=== PATIENT | female | born 1965 | race Caucasian/White ===

== ENCOUNTER 2016-11-28 17:28 | Emergency (ER) | payer OTHER ==
[~2016-11-28] VITALS: Wt 65.9 kg
[~2016-11-28 17:28] MED LIST: DOCU-144 PO; HYDR-3720 PO; HYDR-762 PO; SERT-165 PO
[2016-11-28] MEDS ORDERED: FLUORESCEIN STRIP RIGHT EYE ONE (18:30)
[2016-11-28] MEDS ORDERED: TETRACAINE 0.5% 15 ML OPH RIGHT EYE ONE (18:30)
[2016-11-28] MEDS ORDERED: OFLO5DRO3 OP (18:54)
[2016-11-28] MEDS ORDERED: ACET1TAB40 PO (18:54)
--- NOTE | 2016-11-28 18:58 | ERD ---
ER Documentation Chief Complaint Date/Time DATE: 11/28/16 TIME: 18:56 Chief Complaint r. eye watery, scratchy, sensative to light HPI This 51-year-old female complains of right eye pain after waking in the middle of night and having slow onset of pain. She denies any history of trauma. She has photophobia with but no visual changes or visual field deficit. She has a slight amount of discharge. She denies contact lens use. ROS All systems reviewed and are negative except as per history of present illness. Medications Home Meds Active Scripts Acetaminophen with Codeine (Acetaminophen-Cod #3 Tablet) 1 Each Tablet, 1 TAB PO Q6H Y for PAIN, #12 TAB Prov:JESSE LINDSAY MD 11/28/16 Ofloxacin (Ofloxacin) 5 Ml Drops, 5 ML OP QID for 7 Days, BOTTLE Prov:JESSE LINDSAY MD 11/28/16 Hydrocodone Bit-Acetaminophen* ([place]*) 7.5-325 Tablet, 1 TAB PO Q4H Y for PAIN , #20 TAB Prov:KANDI HAWLEY DO 06/02/16 Docusate Sodium* (Colace*) 100 Mg Capsule, 100 MG PO TID, #30 CAP Prov:ERIC ABRAMS 01/22/16 Hydrocodone Bit-Acetaminophen* ([place]*) 10-325 Mg Tablet, 1 TAB PO Q6 Y for PAIN , #20 TAB Prov:ERIC ABRAMS 01/22/16 Reported Medications Sertraline Hcl* (Sertraline Hcl*) 100 Mg Tablet, 100 MG PO QHS 01/22/16 Allergies Allergies: Coded Allergies: Penicillins (Verified Allergy, Mild, RASH, 04/09/14) PMhx/Soc History of Surgery: No Anesthesia Reaction: No Hx Neurological Disorder: No Hx Respiratory Disorders: No Hx Cardiac Disorders: No Hx Psychiatric Problems: No Hx Miscellaneous Medical Probl: No Hx Alcohol Use: No Hx Substance Use: No Hx Tobacco Use: No Physical Exam Vitals Vital Signs Date Time Temp Pulse Resp B/P Pulse Ox O2 Delivery O2 Flow Rate FiO2 11/28/16 17:50 97.6 85 20 126/72 96 Physical Exam Const: [] Alert, [id number]. Head: Atraumatic Eyes: Normal Conjunctiva. There is what appears to be a small corneal abrasion at 2:00 on the right cornea. There is negative SieDel sign eyes are PERRLA and extraocular movements intact. Visual acuity is 20/50 in the affected eye and 20/30 in the unaffected eye. There is no proptosis. ENT: Normal External Ears, Nose and Mouth. Neck: Full range of motion..~ No meningismus. Resp: Clear to auscultation bilaterally Cardio: Regular rate and rhythm, no murmurs Abd: Soft, non tender, non distended. Normal bowel sounds Skin: No petechiae or rashes Back: No midline or flank tenderness Ext: No cyanosis, or edema Neur: Awake and alert Psych: Normal Mood and Affect Results 24 hrs Current Medications Medications (Trade) Dose Ordered Sig/Elia Route PRN Reason Start Time Stop Time Status Last Admin Dose Admin Tetracaine HCl (Tetracaine 0.5% Oph) 1 drop ONCE ONCE RIGHT EYE 11/28/16 18:30 11/28/16 18:31 DC Fluorescein Sodium (Abjzb-Y-Ibshb) 1 strip ONCE ONCE RIGHT EYE 11/28/16 18:30 11/28/16 18:31 DC Procedures/MDM This patient has signs of appears to be a corneal abrasion on the right eye without evidence of threats to vision, visual field deficits, signs of globe rupture, orbital cellulitis, optic neuritis, retinal artery ischemia. She will be discharged home with a prescription of Ciloxan ophthalmic solution, Tylenol 3 and referral to ophthalmology for further evaluation this week. She should otherwise return to the ER for new or worsening symptoms or Departure Diagnosis: Primary Impression: Eye pain Laterality: right Qualified Code: H57.11 - Eye pain, right Condition: Stable Patient Instructions: Corneal Abrasion Referrals: [facility] Hours: Mon - Fri 9:00 AM - 5:00 PM Additional Instructions: Va al cifuentes doctor/ specialista para mas evaluacon en el proximo semana. posiblemente necesita autorizado de cifuentes doctor primario para specialista. Regresa para fiebre, o mas o nueva simptomas. JESSE LINDSAY MD Nov 28, 2016 18:58
== END 2016-11-28 19:02 | disposition home or self-care (01) ==
LOC: FTE 17:28
DX: H57.11 Ocular pain, right eye (principal)
CPT/HCPCS: Z7502; Z7610; 99284

== ENCOUNTER 2018-03-10 18:54 | Emergency (ER) | END 2018-03-10 21:30 | disposition home or self-care (01) ==

== ENCOUNTER 2018-09-28 17:03 | Emergency (ER) | END 2018-09-28 19:35 | disposition home or self-care (01) ==

== ENCOUNTER 2018-12-12 13:04 | Emergency (ER) | payer BC ==
[~2018-12-12] VITALS: Ht 162.6 cm; Wt 74.8 kg
[~2018-12-12 13:04] MED LIST changes: +ACET1TAB40 PO; +CEPH-443 PO; +NITR-58 PO; +OFLO5DRO3 OP; +PHEN-538 PO
[2018-12-12 13:10] VITALS: BP 125/81; PULSE 88; RESP 18; Ht 162.6 cm; Wt 74.8 kg
[2018-12-12] MEDS ORDERED: TRIA60LO10 TOP (16:14)
[2018-12-12] MEDS ORDERED: MUPI15CR9 TOP (16:14)
--- NOTE | 2018-12-12 21:55 | ERD ---
ER Documentation Chief Complaint Chief Complaint cold sores after fever HPI 53-year-old female presents for rash over her mouth times 4 days. She also has associated cough and runny nose and subjective fever. Her symptoms have been improving however the rash has been ongoing. No treatment tried at home. She denies chest pain or shortness of breath. Denies abdominal pain, nausea, vomiting. ROS All systems reviewed and are negative except as per history of present illness. Medications Home Meds Active Scripts Acetaminophen* (Tylenol*) 325 Mg Tablet, 2 TAB PO Q8 PRN for PAIN AND OR ELEVATED TEMP, #20 TAB Prov:DOMINIQUE VALENZUELA MD 12/21/18 Ranitidine Hcl* (Zantac*) 150 Mg Tablet, 150 MG PO BID PRN for EPIGASTRIC PAIN, #10 TAB Prov:DOMINIQUE VALENZUELA MD 12/21/18 Azithromycin* (Zithromax*) 250 Mg Tablet, 250 MG PO .ZPACK DIRECTED, #6 TAB TAKE 500 MG (2 TABS) THE FIRST DAY THEN 250 MG (1 TAB) DAYS 2-5 Prov:DOMINIQUE VALENZUELA MD 12/21/18 Mupirocin Calcium* (Mupirocin*) 2% - 15 Gram Cream..g., 1 APPLIC TOP BID for rash for 7 Days, #1 TUB Prov:KATHLEEN MCCABE DO 12/12/18 Triamcinolone Acetonide (Triamcinolone Acetonide) 0.025% - 60 Ml Lotion, 1 APPLIC TOP BID PRN for rash for 7 Days, #1 BOTTLE Prov:KATHLEEN MCCABE DO 12/12/18 Nitrofurantoin Monohyd Macrocr* (Macrobid*) 100 Mg Capsr, 100 MG PO BID for 7 Days, CAP Prov:GORDON YOUNG PA-C 09/28/18 Phenazopyridine Hcl* (Pyridium*) 200 Mg Tab, 200 MG PO TID PRN for URINARY PAIN, #6 TAB Prov:ELIS,KEISHA 03/10/18 Cephalexin* (Keflex*) 500 Mg Capsule, 500 MG PO TID for 7 Days, CAP Prov:ELIS,KEISHA 03/10/18 Acetaminophen with Codeine (Acetaminophen-Cod #3 Tablet) 1 Each Tablet, 1 TAB PO Q6H PRN for PAIN, #12 TAB Prov:JESSE LINDSAY MD 11/28/16 Ofloxacin (Ofloxacin) 5 Ml Drops, 5 ML OP QID for 7 Days, BOTTLE Prov:JESSE LINDSAY MD 11/28/16 Hydrocodone Bit-Acetaminophen* ([place]*) 7.5-325 Tablet, 1 TAB PO Q4H PRN for PAIN, #20 TAB Prov:KANDI HAWLEY DO 06/02/16 Docusate Sodium* (Colace*) 100 Mg Capsule, 100 MG PO TID, #30 CAP Prov:ERIC ABRAMS MD 01/22/16 Hydrocodone Bit-Acetaminophen* ([place]*) 10-325 Mg Tablet, 1 TAB PO Q6 PRN for PAIN, #20 TAB Prov:ERIC ABRAMS MD 01/22/16 Reported Medications Sertraline Hcl* (Sertraline Hcl*) 100 Mg Tablet, 100 MG PO QHS 01/22/16 Allergies Allergies: Coded Allergies: Penicillins (Verified Allergy, Mild, RASH, 04/09/14) PMhx/Soc Medical and Surgical Hx: pt denies Medical Hx, pt denies Surgical Hx History of Surgery: No Anesthesia Reaction: No Hx Neurological Disorder: No Hx Respiratory Disorders: No Hx Cardiac Disorders: No Hx Psychiatric Problems: No Hx Miscellaneous Medical Probl: No Hx Alcohol Use: No Hx Substance Use: No Hx Tobacco Use: No Smoking Status: Never smoker Physical Exam Vitals Vital Signs Date Temp Pulse Resp B/P (MAP) Pulse Ox O2 O2 Flow FiO2 Time Delivery Rate 12/12/18 98.2 88 18 125/81 99 13:10 (96) Physical Exam Const: No acute distress Head: Atraumatic Eyes: Normal Conjunctiva ENT: Normal External Ears, Nose, rash noted over the es border of the upper lip, crusted over Neck: Full range of motion. No meningismus. Resp: Clear to auscultation bilaterally Cardio: Regular rate and rhythm, no murmurs Abd: Soft, non tender, non distended. Normal bowel sounds Skin: No petechiae Back: No midline or flank tenderness Ext: No cyanosis, or edema Neur: Awake and alert Psych: Normal Mood and Affect Procedures/MDM Medical Decision Making: Differential diagnosis includes but not limited to chelitis, contact dermatitis, cellulitis. Patient appeared well on physical exam. Examination of the rash consistent with a chelitis. Patient given prescription for supportive creams. Patient advised to follow up with PCP in 1-2 days. Patient advised to return to ED for new or worsening symptoms. Patient stable on discharge from the ED. Disclaimer: Inadvertent spelling and grammatical errors are likely due to EHR/ dictation software use and do not reflect on the overall quality of patient care. Also, please note that the electronic time recorded on this note does not necessarily reflect the actual time of the patient encounter. Departure Diagnosis: Primary Impression: Cheilitis Condition: Fair Patient Instructions: Self-Care for Skin Rashes Referrals: [facility] YOU HAVE RECEIVED A MEDICAL SCREENING EXAM AND THE RESULTS INDICATE THAT YOU DO NOT HAVE A CONDITION THAT REQUIRES URGENT TREATMENT IN THE EMERGENCY DEPARTMENT. FURTHER EVALUATION AND TREATMENT OF YOUR CONDITION CAN WAIT UNTIL YOU ARE SEEN IN YOUR DOCTORS OFFICE WITHIN THE NEXT 1-2 DAYS. IT IS YOUR RESPONSIBILITY TO MAKE AN APPOINTMENT FOR FOLOW-UP CARE. IF YOU HAVE A PRIMARY DOCTOR --you should call your primary doctor and schedule an appointment IF YOU DO NOT HAVE A PRIMARY DOCTOR YOU CAN CALL OUR PHYSICIAN REFERRAL HOTLINE AT IF YOU CAN NOT AFFORD TO SEE A PHYSICIAN YOU CAN CHOSE FROM THE FOLLOWING [facility] [address] [facility] [address] [facility] [facility] [address] [facility] [address] [facility]. [facility] [address] [facility]. [facility]. [address] Additional Instructions: Llame al doctor MAANA y emil price CRISTINA PARA DENTRO DE 1-2 ROGERS.Dgale a la secretaria que nosotros le instruimos hacer esta cristina.Avise o llame si cifuentes condicin se empeora antes de la cristina. Regresa aqui si peor o no mejor. KATHLEEN MCCABE DO Dec 12, 2018 21:55
[2018-12-21] MEDS ORDERED: RANI150T35 PO (18:05)
[2018-12-21] MEDS ORDERED: AZIT250T PO (18:05)
[2018-12-21] MEDS ORDERED: ACET325T33 PO (18:05)
== END 2018-12-12 16:27 | disposition home or self-care (01) ==
LOC: FTE 13:04
DX: K13.0 Diseases of lips (principal)
CPT/HCPCS: 99283

== ENCOUNTER 2018-12-29 18:11 | Emergency (ER) | payer BC ==
[~2018-12-29] VITALS: Ht 162.6 cm; Wt 73.5 kg
[~2018-12-29 18:11] MED LIST changes: +ACET325T33 PO; +AZIT250T PO; +MUPI15CR9 TOP; +RANI150T35 PO; +TRIA60LO10 TOP
[2018-12-29 18:22] VITALS: Ht 162.6 cm; Wt 73.5 kg
--- NOTE | 2018-12-29 20:24 | ERD ---
ER Documentation Chief Complaint Chief Complaint c/o left ring finger pain and swelling, s/p fall yest. from bed HPI 53-year-old female presents here to emergency department for complaints of left fourth finger pain and swelling that started yesterday after falling up from bed, describes the pain as throbbing pain, 6/10 scale, as was upon movement, denies taking any medications to help with symptoms. Patient denies any deformity. Patient denies any numbness or tingling ROS All systems reviewed and are negative except as per history of present illness. Medications Home Meds Active Scripts Acetaminophen* (Tylenol*) 325 Mg Tablet, 2 TAB PO Q8 PRN for PAIN AND OR ELEVATED TEMP, #20 TAB Prov:DOMINIQUE VALENZUELA MD 12/21/18 Ranitidine Hcl* (Zantac*) 150 Mg Tablet, 150 MG PO BID PRN for EPIGASTRIC PAIN, #10 TAB Prov:DOMINIQUE VALENZUELA MD 12/21/18 Azithromycin* (Zithromax*) 250 Mg Tablet, 250 MG PO .KathleenPACK DIRECTED, #6 TAB TAKE 500 MG (2 TABS) THE FIRST DAY THEN 250 MG (1 TAB) DAYS 2-5 Prov:DOMINIQUE VALENZUELA MD 12/21/18 Mupirocin Calcium* (Mupirocin*) 2% - 15 Gram Cream..g., 1 APPLIC TOP BID for rash for 7 Days, #1 TUB Prov:KATHLEEN MCCABE DO 12/12/18 Triamcinolone Acetonide (Triamcinolone Acetonide) 0.025% - 60 Ml Lotion, 1 APPLIC TOP BID PRN for rash for 7 Days, #1 BOTTLE Prov:KATHLEEN MCCABE DO 12/12/18 Nitrofurantoin Monohyd Macrocr* (Macrobid*) 100 Mg Capsr, 100 MG PO BID for 7 Days, CAP Prov:GORDON YOUNG PA-C 09/28/18 Phenazopyridine Hcl* (Pyridium*) 200 Mg Tab, 200 MG PO TID PRN for URINARY PAIN, #6 TAB Prov:ELIS,KEISHA 03/10/18 Cephalexin* (Keflex*) 500 Mg Capsule, 500 MG PO TID for 7 Days, CAP Prov:ELIS,KEISHA 03/10/18 Acetaminophen with Codeine (Acetaminophen-Cod #3 Tablet) 1 Each Tablet, 1 TAB PO Q6H PRN for PAIN, #12 TAB Prov:JESSE LINDSAY MD 11/28/16 Ofloxacin (Ofloxacin) 5 Ml Drops, 5 ML OP QID for 7 Days, BOTTLE Prov:JESSE LINDSAY MD 11/28/16 Hydrocodone Bit-Acetaminophen* ([place]*) 7.5-325 Tablet, 1 TAB PO Q4H PRN for PAIN, #20 TAB Prov:KANDI HAWLEY DO 06/02/16 Docusate Sodium* (Colace*) 100 Mg Capsule, 100 MG PO TID, #30 CAP Prov:ERIC ABRAMS MD 01/22/16 Hydrocodone Bit-Acetaminophen* ([place]*) 10-325 Mg Tablet, 1 TAB PO Q6 PRN for PAIN, #20 TAB Prov:ERIC ABRAMS MD 01/22/16 Reported Medications Sertraline Hcl* (Sertraline Hcl*) 100 Mg Tablet, 100 MG PO QHS 01/22/16 Allergies Allergies: Coded Allergies: Penicillins (Verified Allergy, Mild, RASH, 04/09/14) PMhx/Soc Medical and Surgical Hx: pt denies Medical Hx, pt denies Surgical Hx History of Surgery: No Anesthesia Reaction: No Hx Neurological Disorder: No Hx Respiratory Disorders: No Hx Cardiac Disorders: No Hx Psychiatric Problems: No Hx Miscellaneous Medical Probl: No Hx Alcohol Use: No Hx Substance Use: No Hx Tobacco Use: No Smoking Status: Never smoker FmHx Family History: No diabetes, No coronary disease, No other Physical Exam Vitals Vital Signs Date Temp Pulse Resp B/P (MAP) Pulse Ox O2 O2 Flow FiO2 Time Delivery Rate 12/29/18 97.5 89 20 128/81 98 18:22 (97) Physical Exam GENERAL: The patient is well developed and appropriate for usual state of health, in no apparent distress. CHEST: Clear to auscultation bilaterally. There are no rales, wheezes or rhonchi. HEART: Regular rate and rhythm. No murmurs, clicks, rubs or gallops. No S3 or S4. ABDOMEN: Soft, nontender and nondistended. Good bowel sounds. No rebound or guarding. No gross peritonitis. No gross organomegaly or masses. No Miller sign or McBurney point tenderness. BACK: No midline or flank tenderness. EXTREMITIES: Noted mild swelling and redness on the left fourth finger, unable to do full range of motion because of pain and swelling. No deformity noted. Equal pulses bilaterally. There is no peripheral clubbing, cyanosis or edema. No focal swelling or erythema. Full range of motion. Grossly neurovascularly intact. NEURO: Alert and oriented. Cranial nerves 2-12 intact. Motor strength in all 4 extremities with 5/5 strength. Sensation grossly intact. Normal speech and gait. SKIN: There is no apparent rash or petechia. The skin is warm and dry. HEMATOLOGIC AND LYMPHATIC: There is no evidence of excessive bruising or lymphedema. No gross cervical, axillary, or inguinal lymphadenopathy. Results 24 hrs PROCEDURE: XR Finger. CLINICAL INDICATION: L 4th finger pain sp fall TECHNIQUE: Three views of the left ring finger. COMPARISON: [facility] 06/02/2016 FINDINGS: Acute, mildly displaced intra-articular fracture at the dorsal base of the ring finger distal phalanx with adjacent soft tissue swelling. No dislocation or arthropathy of the joint spaces. IMPRESSION: Acute, mildly displaced intra-articular fracture at the dorsal base of the ring finger distal phalanx. RPTAT: HRGF Physician Marlene Date Time Electronically viewed and signed by Physician Marlene on 12/29/2018 20:49 RF/ CC: SUJIT AUSTIN NP [phone] Procedures/MDM After receiving patients xray report, a metal splint was applied on the patients left 4th finger. After application of the splint, patient has intact sensation and circulation on distal area of the affected joint. Patient does not complain of numbness or tingling after application of the splint. Patient tolerated procedure well. Medical Decision Making: Patient's pain is most likely consistent with a finger fracture. There is no suspicion for neurovascular compromise. Patient has intact sensation and circulation of the affected extremity. There is low suspicion for septic arthritis. Patient does not have any fever. Radiology exams of the affected area does not show any dislocation. Disposition: Home. Patient is given prescription for ibuprofen for pain, tramadol for severe pain. Patient was advised to elevate the affected area and apply ice on affected area. Patient was advised that if symptoms are worse, numbness, tingling, high fever, unable to move joint, worsening symptoms, to return to emergency department immediately. Otherwise, patient is advised to follow up with the primary care doctor in 5-7 days for reevaluation of symptoms. To see orthopedic doctor the next 2-3 days. Disclaimer: Inadvertent spelling and grammatical errors are likely due to EHR/dictation software use and do not reflect on the overall quality of patient care. Also, please note that the electronic time recorded on this note does not necessarily reflect the actual time of the patient encounter. Departure Diagnosis: Primary Impression: Finger fracture, left Encounter type: initial encounter Finger: ring finger Fracture type: closed Phalanx: unspecified phalanx Fracture alignment: displaced Qualified Codes: S62.605A - Fracture of unspecified phalanx of left ring finger, initial encounter for closed fracture Condition: Stable Patient Instructions: Finger and Toe Fractures (Broken Finger or Toe) Additional Instructions: . Patient is given prescription for ibuprofen for pain, tramadol for severe pain. Patient was advised to elevate the affected area and apply ice on affected area. Patient was advised that if symptoms are worse, numbness, tingling, high fever, unable to move joint, worsening symptoms, to return to emergency department immediately. Otherwise, patient is advised to follow up with the primary care doctor in 5-7 days for reevaluation of symptoms. To see orthopedic doctor the next 2-3 days. SUJIT AUSTIN NP Dec 29, 2018 20:24
[2018-12-29] MEDS ORDERED: IBUP-1542 PO (21:28)
[2018-12-29] MEDS ORDERED: TRAM50TA2 PO (21:28)
[2018-12-29 21:47] VITALS: BP 137/88; PULSE 76; RESP 19
== END 2018-12-29 21:48 | disposition home or self-care (01) ==
LOC: FTE 18:11
DX: S62.605A Fracture of unspecified phalanx of left ring finger, initial encounter for closed fracture (principal); W06.XXXA Fall from bed, initial encounter; Y92.9 Unspecified place or not applicable
CPT/HCPCS: 29130; 73140; 99283; Z7610

== ENCOUNTER 2019-03-21 21:42 | Emergency (ER) | payer BC ==
[~2019-03-21] VITALS: Wt 71.8 kg
[~2019-03-21 21:42] MED LIST changes: +IBUP-1542 PO; +TRAM50TA2 PO
--- NOTE | 2019-03-21 22:50 | ERD ---
ER Documentation Chief Complaint Chief Complaint left forehead laceration, states lamp fell on her while in bed x 30 min ago HPI This is a 53-year-old female patient who presents to emergency room with large laceration to center of forehead. 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 Complains of dizziness, patient having difficulty following instructions, denies nausea or headache. Ecchymosis and swelling to left orbit, denies alcohol or drug use. Denies any other chronic medical problems. Patient denies any physical abuse or concerns for her safety. ROS All systems reviewed and are negative except as per history of present illness. Medications Home Meds Active Scripts Tramadol HCl (Tramadol HCl) 50 Mg Tablet, 50 MG PO Q6 PRN for SEVERE PAIN LEVEL 7-10, #7 TAB Prov:SUJIT AUSTIN NP 12/29/18 Ibuprofen* (Motrin*) 600 Mg Tab, 600 MG PO Q6H PRN for PAIN AND OR ELEVATED TEMP, #30 TAB Prov:SUJIT AUSTIN NP 12/29/18 Acetaminophen* (Tylenol*) 325 Mg Tablet, 2 TAB PO Q8 PRN for PAIN AND OR ELEVATED TEMP, #20 TAB Prov:DOMINIQUE VALENZUELA MD 12/21/18 Ranitidine Hcl* (Zantac*) 150 Mg Tablet, 150 MG PO BID PRN for EPIGASTRIC PAIN, #10 TAB Prov:DOMINIQUE VALENZUELA MD 12/21/18 Azithromycin* (Zithromax*) 250 Mg Tablet, 250 MG PO .SMITH DIRECTED, #6 TAB TAKE 500 MG (2 TABS) THE FIRST DAY THEN 250 MG (1 TAB) DAYS 2-5 Prov:DOMINIQUE VALENZUELA MD 12/21/18 Mupirocin Calcium* (Mupirocin*) 2% - 15 Gram Cream..g., 1 APPLIC TOP BID for rash for 7 Days, #1 TUB Prov:KATHLEEN MCCABE DO 12/12/18 Triamcinolone Acetonide (Triamcinolone Acetonide) 0.025% - 60 Ml Lotion, 1 APPL IC TOP BID PRN for rash for 7 Days, #1 BOTTLE Prov:KATHLEEN MCCABE DO 12/12/18 Nitrofurantoin Monohyd Macrocr* (Macrobid*) 100 Mg Capsr, 100 MG PO BID for 7 Days, CAP Prov:GORDON YOUNG PA-C 09/28/18 Phenazopyridine Hcl* (Pyridium*) 200 Mg Tab, 200 MG PO TID PRN for URINARY PAIN, #6 TAB Prov:ELIS,KEISHA 03/10/18 Cephalexin* (Keflex*) 500 Mg Capsule, 500 MG PO TID for 7 Days, CAP Prov:ELIS,KEISHA 03/10/18 Acetaminophen with Codeine (Acetaminophen-Cod #3 Tablet) 1 Each Tablet, 1 TAB PO Q6H PRN for PAIN, #12 TAB Prov:JESSE LINDSAY MD 11/28/16 Ofloxacin (Ofloxacin) 5 Ml Drops, 5 ML OP QID for 7 Days, BOTTLE Prov:JESSE LINDSAY MD 11/28/16 Hydrocodone Bit-Acetaminophen* ([place]*) 7.5-325 Tablet, 1 TAB PO Q4H PRN for PAIN, #20 TAB Prov:KANDI HAWLEY DO 06/02/16 Docusate Sodium* (Colace*) 100 Mg Capsule, 100 MG PO TID, #30 CAP Prov:ERIC ABRAMS MD 01/22/16 Hydrocodone Bit-Acetaminophen* ([place]*) 10-325 Mg Tablet, 1 TAB PO Q6 PRN for PAIN, #20 TAB Prov:ERIC ABRAMS MD 01/22/16 Reported Medications Sertraline Hcl* (Sertraline Hcl*) 100 Mg Tablet, 100 MG PO QHS 01/22/16 Allergies Allergies: Coded Allergies: Penicillins (Verified Allergy, Mild, RASH, 04/09/14) PMhx/Soc Medical and Surgical Hx: pt denies Medical Hx, pt denies Surgical Hx History of Surgery: No Anesthesia Reaction: No Hx Neurological Disorder: No Hx Respiratory Disorders: No Hx Cardiac Disorders: No Hx Psychiatric Problems: No Hx Miscellaneous Medical Probl: No Hx Alcohol Use: No Hx Substance Use: No Hx Tobacco Use: No Smoking Status: Never smoker FmHx Family History: No diabetes, No coronary disease, No other Physical Exam Vitals Vital Signs Date Temp Pulse Resp B/P (MAP) Pulse Ox O2 O2 Flow FiO2 Time Delivery Rate 03/22/19 98.1 81 18 141/81 98 Room Air 01:42 (101) 03/21/19 98.1 89 18 142/85 98 21:47 (104) Physical Exam Const: No acute distress Head: No crepitus to skull, ecchymosis to left eye, tenderness to palpation at medial upper orbit, no connolly sign Eyes: Normal Conjunctiva, PERRL, left lateral gaze palsy ENT: Normal External Ears, Nose and Mouth. Neck: Full range of motion. No meningismus. No cervical spinal tenderness. Resp: Clear to auscultation bilaterally Cardio: Regular rate and rhythm, no murmurs Abd: Soft, non tender, non distended. Normal bowel sounds Skin: No petechiae or rashes Back: No midline or flank tenderness Ext: No cyanosis, or edema Neur: Awake and alert, A/O x4, needing repetitive questions, mild confusion, decreased left upper peripheral vision, CN II-XII intact Psych: Flat Mood Result Diagram: 03/22/19 0154 03/22/19 0154 Results 24 hrs Laboratory Tests Test 03/22/19 01:54 White Blood Count 14.0 10^3/ul Red Blood Count 4.84 10^6/ul Hemoglobin 15.0 g/dl Hematocrit 43.7 % Mean Corpuscular Volume 90.3 fl Mean Corpuscular Hemoglobin 31.0 pg Mean Corpuscular Hemoglobin Concent 34.3 g/dl Red Cell Distribution Width 12.2 % Platelet Count 287 10^3/UL Mean Platelet Volume 9.5 fl Immature Granulocytes % 0.300 % Neutrophils % 71.1 % Lymphocytes % 23.4 % Monocytes % 4.8 % Eosinophils % 0.1 % Basophils % 0.3 % Nucleated Red Blood Cells % 0.0 /100WBC Immature Granulocytes # 0.040 10^3/ul Neutrophils # 10.0 10^3/ul Lymphocytes # 3.3 10^3/ul Monocytes # 0.7 10^3/ul Eosinophils # 0.0 10^3/ul Basophils # 0.0 10^3/ul Nucleated Red Blood Cells # 0.0 10^3/ul Prothrombin Time 12.6 Sec Prothrombin Time Ratio 1.0 INR International Normalized Ratio 0.93 Activated Partial Thromboplast Time 26.0 Sec Sodium Level 142 mmol/L Potassium Level 4.0 mmol/L Chloride Level 107 mmol/L Carbon Dioxide Level 25 mmol/L Anion Gap 10 Blood Urea Nitrogen 18 mg/dl Creatinine 0.65 mg/dl Est Glomerular Filtrat Rate mL/min > 60 mL/min Glucose Level 129 mg/dl Calcium Level 9.5 mg/dl Current Medications Medications Dose Sig/Elia Start Time Status Last (Trade) Ordered Route PRN Stop Time Admin Dose Reason Admin Ibuprofen 400 mg ONCE ONCE 03/21/19 DC 03/21/19 (Motrin) PO 23:00 03/21/19 22:52 23:01 Diphtheria/ 0.5 ml ONCE ONCE 03/22/19 DC 03/22/19 Tetanus/Acell IM* 02:00 03/22/19 02:15 Pertussis 02:01 (Adacel) Procedures/MDM Is a 53-year-old female patient presents emergency room with large laceration to forehead. ED COURSE: The patient was stable throughout ED course. I kept the patient and/or family informed of laboratory and diagnostic imaging results throughout the ED course. DIAGNOSTIC IMAGING: CAT scan result Brain: 1. Large soft tissue laceration along the left frontal convexity. Hematoma along the partially visualized left medial orbit. Please also see dedicated and separate CT report of the orbits. 2. No evidence of underlying calvarial fracture. 3. No CT evidence of acute intracranial changes such as hemorrhage, midline shift, mass effect or herniation. Orbits: Soft tissue stranding and hematoma along the medial aspect of the left orbit, with preseptal edema. Associated acute fracture of the medial wall left orbit, lamina papyracea, with cortical discontinuity and depression, with mild asymmetric opacification of the left ethmoid air cells. Clinical correlation can be made for entrapment given the close proximity of the medial rectus extraocular muscle. Soft tissue laceration overlying the left frontal bone and frontal sinus, also seen on the same day head CT. PROCEDURES: Laceration Repair by me: Anesthesia: 2% lidocaine with epi locally Location: middle forehead Tendon/Joint/Nerves: No injury Foreign body: None detected after copious irrigation and exploration Technique: 6 Simple Interrupted Sutures Complexity: No subcutaneous sutures/mucosal repair/edge excision Post Closure Length: 5 cm Patient's bleeding was easily controlled in the department and there is no indication of anemia. No evidence of compartment syndrome, neurologic injury, vascular injury, open joint, tendon laceration, or foreign body. Patient is appropriate for outpatient follow up. . MEDICATIONS GIVEN: Ibuprofen Patient tolerated medication well with no adverse reactions. Patient reported improvement in pain. MDM: Patient continues with limited range of motion for her extraocular eye movements of the left eye. Due to diagnosis of fracture and possible entrapment patient has been signed over to Dr. Ibrahim. JENNIFER DUDLEY NP March 21, 2019 22:50
[2019-03-21] MEDS ORDERED: IBUPROFEN 200 MG TAB PO ONE (23:00)
--- NOTE | 2019-03-22 01:31 | QN ---
Documentation Comment I have seen and evaluated the patient along with the PA and/or [facility] provider. I agree with the evaluation and plan of care. Please see their documentation for full ER course and evaluation. In short: The patient presents with a mechanical trip and fall, forehead laceration. The patient denies any drugs or alcohol, anticoagulants. On exam: Patient sustained a forehead laceration. Ocular exam is concerning for early entrapment with evidence of subtle deficit with left upward gaze. No afferent pupillary defect. Assessment and plan: The patient CT brain is negative but CT orbits shows evidence of orbital fracture. Clinical exam is somewhat concerning for possible early signs of ocular entrapment. Based on these findings, CT findings I would recommend transfer to a trauma center for OMFS surgical evaluation. I was able to speak to Dr. Navarro, trauma surgeon at [facility]. He is accepted the case. Patient will be transferred via ALS. Charge nurse will notify the ER physician. Patient is stable for transfer, benefits outweigh the risks. NEHAL DUPREE MD March 22, 2019 01:31
[2019-03-22 01:42] VITALS: BP 141/81; PULSE 81; RESP 18
[2019-03-22] MEDS ORDERED: DIPHTH/TET/ACEL PERTUSS (ADULT) 0.5 ML VIAL IM* ONE (02:00)
== END 2019-03-22 04:08 | disposition short-term general hospital (02) ==
LOC: FTE 21:42 → E/R 03-22 04:08
DX: S01.81XA Laceration without foreign body of other part of head, initial encounter (principal); W20.8XXA Other cause of strike by thrown, projected or falling object, initial encounter; Y92.9 Unspecified place or not applicable; Z23 Encounter for immunization
CPT/HCPCS: 12013; 70450; 70480; 80048; 85025; 85610; 85730; 90471; 90715; 99285; Z7610